=== PATIENT | female | born 1980 | race Caucasian/White ===

== ENCOUNTER 2017-05-15 14:53 | Emergency (ER) | payer MEDICAID ==
[2017-05-15 15:34] LABS: BASOPHILS % (AUTO) 0.4 %; HCT - HEMATOCRIT 39.8 % (37.0-47.0); HGB - HEMOGLOBIN 13.5 g/dL (12.0-16.0); LYMPHOCYTES # (AUTO) 1.3 10^3/uL (1.5-3.5); LYMPHOCYTES % (AUTO) 15.5 %; MEAN CORPUSCULAR HEMOGLOBIN 32.5 pg (27.0-31.0); MEAN CORPUSCULAR HGB CONC 33.9 g/dL (32.0-36.0); MEAN CORPUSCULAR VOLUME 95.9 fL (81.0-99.0); MONOCYTES # (AUTO) 0.4 10^3/uL (0.0-1.0); MONOCYTES % (AUTO) 4.8 %; NEUTROPHILS # (AUTO) 6.5 10^3/uL (1.5-6.6); NEUTROPHILS % (AUTO) 79.3 %; RED BLOOD COUNT 4.15 10^6/uL (4.20-5.40); RED CELL DISTRIBUTION WIDTH 12.7 % (12.0-15.0); UNCORRECTED WHITE BLOOD COUNT 8.2 x10^3/uL; WHITE BLOOD COUNT 8.2 x10^3/uL (4.8-10.8)
[2017-05-15 15:50] LABS: ALBUMIN/GLOBULIN RATIO 1.5 (1.0-2.2); BILIRUBIN,TOTAL 0.5 mg/dL (0.2-1.0); BUN - BLOOD UREA NITROGEN 10 mg/dL (6-20); CALCIUM 8.8 mg/dL (8.5-10.3); CARBON DIOXIDE - CO2 24 mmol/L (21-32); CHLORIDE 104 mmol/L (101-111); CREATININE 0.7 mg/dL (0.4-1.0); GFR - MDRD 94 (>89); GLUCOSE 95 mg/dL (70-100); LIPASE 16 U/L (22-51); POTASSIUM 3.6 mmol/L (3.5-5.0); SALICYLATE < 6.0 mg/dL; SODIUM 138 mmol/L (135-145)
[2017-05-15 15:52] LABS: ACETAMINOPHEN < 10 ug/mL (10-30)
[2017-05-15 16:47] LABS: BILIRUBIN,URINE NEGATIVE (NEGATIVE); UA CHARGE (STRIP ONLY) YES; UR CULTURE IF IND NOT INDICATED
[2017-05-15] MEDS ORDERED: LORazepam 0.5 MG TABLET PO STA ×2 (17:00→19:23)
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
[2017-05-15] MEDS ORDERED: LORazepam 0.5 MG TABLET ONE ×2 (17:18→19:34)
[2017-05-15] MEDS ORDERED: MAG HYDROX/AL HYDROX/SIMETH 30 ML UDC PO STA (19:23)
[2017-05-15] MEDS ORDERED: MAG HYDROX/AL HYDROX/SIMETH 30 ML UDC ONE (19:34)
[2017-05-15] MEDS ORDERED: OLANZapine ODT 5 MG TABLET TL ONE ×2 (21:34→21:57)
[2017-05-16 11:26] VITALS: BP 127/88
[2017-05-16] MEDS ORDERED: LORazepam 0.5 MG TABLET PO STA (11:44)
--- NOTE | 2017-05-16 11:50 | ED Physician Documentation ---
ED Addendum - Addendum Addendum: 05/16/17 11:49 outreach worker Zabrina saw the patient and talked with her and her boyfriend. She is not feeling suicidal at this time. She requests benzodiazepine short-term until and arranged appointment with her provider on Thursday. The [facility] crisis line will call her tomorrow to check in on her. Her boyfriend will take time off work for the next couple of days and be with her. She did sign a no harm contract. She is pleasant and conversant at this time and says she will keep her appointment on Thursday. She feels good going home.
[2017-05-16] MEDS ORDERED: LORazepam 0.5 MG TABLET ONE (11:54)
== END 2017-05-16 11:58 | disposition home or self-care (01) ==
LOC: ED 14:53
DX: R45.851 Suicidal ideations (principal); F32.9 Major depressive disorder, single episode, unspecified; F17.200 Nicotine dependence, unspecified, uncomplicated; F43.10 Post-traumatic stress disorder, unspecified; F10.10 Alcohol abuse, uncomplicated; F12.10 Cannabis abuse, uncomplicated
CPT/HCPCS: 36415; 80053; 80306; 80307; 80320; 80329; 81003; 83690; 85025; 99284; A9270; 81001; 87086

== ENCOUNTER 2017-05-19 12:46 | Emergency (ER) | payer MEDICAID ==
[2017-05-19] MEDS ORDERED: clonazePAM 0.5 MG TABLET PO STA (14:07)
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
[2017-05-19] MEDS ORDERED: clonazePAM 0.5 MG TABLET PO ONE (14:23)
[2017-05-19 14:42] VITALS: BP 151/92
== END 2017-05-19 16:00 | disposition home or self-care (01) ==
LOC: ED 12:46
DX: F41.9 Anxiety disorder, unspecified (principal); F32.9 Major depressive disorder, single episode, unspecified; F43.10 Post-traumatic stress disorder, unspecified; R03.0 Elevated blood-pressure reading, without diagnosis of hypertension; F17.200 Nicotine dependence, unspecified, uncomplicated
CPT/HCPCS: 99283; A9270